=== PATIENT | male | born 1930 | race Caucasian/White ===

== ENCOUNTER 2017-11-22 14:34 | Emergency (ER) | payer MEDICARE ==
[~2017-11-22] VITALS: Ht 167.6 cm; Wt 85.7 kg
[2017-11-22] MEDS ORDERED: SYNTHROID50 MCG PO (15:04)
[2017-11-22] MEDS ORDERED: OMEPRAZOLE20 MG PO (15:04)
[2017-11-22] MEDS ORDERED: CRESTOR20 MG PO (15:05)
[2017-11-22] MEDS ORDERED: TETRACYCLINE H250 MG PO (15:05)
[2017-11-22] MEDS ORDERED: KLOR-CON M1010 MEQ PO (15:06)
[2017-11-22] MEDS ORDERED: LASIX20 MG PO (15:06)
[2017-11-22] MEDS ORDERED: WARFARIN SODIUM5 MG PO (15:06)
[2017-11-22] MEDS ORDERED: METOPROLOL TART50 MG PO (15:07)
[2017-11-22] MEDS ORDERED: FINASTERIDE5 MG PO (15:08)
[2017-11-22] MEDS ORDERED: NITROSTAT0.4 MG SL (15:08)
[2017-11-22] MEDS ORDERED: ISOSORBIDE MONO30 MG PO (15:08)
[2017-11-22] MEDS ORDERED: [UNRECOGNIZED DRUG - OTHER] PO (15:09)
[2017-11-22] MEDS ORDERED: FERREX PO (15:09)
== END 2017-11-22 16:40 | disposition home or self-care (01) ==
LOC: ED 14:34
DX: K92.2 Gastrointestinal hemorrhage, unspecified (principal); Z88.1 Allergy status to other antibiotic agents; Z88.5 Allergy status to narcotic agent; Z88.8 Allergy status to other drugs, medicaments and biological substances; Z79.899 Other long term (current) drug therapy; Z79.01 Long term (current) use of anticoagulants
CPT/HCPCS: 80053; 85025; 85610; 86850; 86900; 86901; 96374; 99285